=== PATIENT | female | born 1985 | race Caucasian/White ===

== ENCOUNTER 2022-10-11 03:16 | Emergency (ER) | payer MEDICARE, MEDICAID, SELFPAY ==
[2022-10-11 03:26] VITALS: BP 113/52; PULSE 84; RESP 20; TEMP 36.3; O2SAT 98; BMI 30.2
== END 2022-10-11 06:30 | disposition left against medical advice (07) ==
PROVIDERS: Emergency Provider Emergency Medicine; PCP Physician Assistant Medical
DX: F41.9 Anxiety disorder, unspecified (principal)
CPT/HCPCS: 99281